=== PATIENT | male | born 1950 | race Two or more races ===

== ENCOUNTER 2021-11-04 07:27 | Outpatient (CLI) | payer OTHER | END 2021-11-04 07:35 | disposition home or self-care (01) | LOC: RX STUDY 07:27 | PROVIDERS: ATTEND Internal Medicine Gastroenterology | DX: K56.600 Partial intestinal obstruction, unspecified as to cause (principal); K56.609 Unspecified intestinal obstruction, unspecified as to partial versus complete obstruction; C18.9 Malignant neoplasm of colon, unspecified; K57.32 Diverticulitis of large intestine without perforation or abscess without bleeding; K59.00 Constipation, unspecified ==